=== PATIENT | female | born 1955 | race African-American/Black ===

== ENCOUNTER 2019-11-06 01:40 | Inpatient (IN) | payer BC, OTHER ==
[2019-11-06 02:51] LABS: Bacteria/HPF None Seen HPF (None Seen); Bilirubin 2+ (Negative); Blood, Urine Negative (Negative); Clarity Clear (Clear); Glucose, Urine (Dipstick) Greater than 1000 mg/dL (Negative); Ketone, Urine 10 mg/dL (Negative); Leukocyte Negative Leu/uL (Negative); Nitrite Negative (Negative); Protein, Urine (Dipstick) 100 mg/dL (Neg-Trace); RBC/HPF 0-3 HPF (0-3); Specific Gravity, Urine 1.026 (1.002-1.036); Squamous Epithelial 0-3 HPF (0-3); Urobilinogen Normal mg/dL (Less than 2); pH, Urine 6.5 (5.0-9.0)
[2019-11-06] MEDS ORDERED: Dextrose 5% in Water 1,000 ML IV PRN (02:51)
[2019-11-06] MEDS ORDERED: Dextrose 50% Abboject 50 ML SYRINGE SLOW IVP PRN (02:51)
[2019-11-06 04:01] LABS: #Lymphocytes 0.7 thou/uL (1.20-3.40); #Monocytes 0.2 thou/uL (0.11-0.59); #Neutrophils 3.6 thou/uL (1.40-6.50); %Basophils 0.6 % (0.0-1.0); %Eosinophils 0.1 % (0.0-10.0); %Lymphocytes 14.7 % (21.0-51.0); %Monocytes 5.3 % (0.0-10.0); %Neutrophils 79.3 % (42.0-75.0); Mean Corpuscular HGB CONC 33.6 g/dL (32.0-36.0); Mean Corpuscular Hemoglobin 25.5 pg (27.0-31.0); Mean Corpuscular Volume 75.7 fL (78.0-98.0); Mean Platelet Volume 9.8 fL (7.4-10.4); Platelet Count 300 thou/uL (130-400); RBC Distribution Width 13.4 % (11.5-14.5); Red Blood Cell (RBC) Count 4.73 mill/uL (4.20-5.40); White Blood Cell (WBC) Count 4.6 thou/uL (4.8-10.8)
[2019-11-06 04:12] LABS: ALT (SGPT) 15 U/L (8-55); AST (SGOT) 15 U/L (5-34); Albumin 3.9 g/dL (3.4-4.8); Alkaline Phosphatase 72 U/L (40-110); Anion Gap 15 mmol/L (10-20); BUN (Urea Nitrogen) 26 mg/dL (9.8-20.1); Bilirubin, Total 0.6 mg/dL (0.2-1.2); Calc. Creatinine Clearance 0 mL/min (70-130); Carbon Dioxide 26 mmol/L (23-31); Chloride 98 mmol/L (98-107); Estimated GFR-MDRD 50; Globulin 4.5 g/dL (2.4-3.5); Glucose 365 mg/dL (80-115); Potassium 4.1 mmol/L (3.5-5.1); Protein, Total 8.4 g/dL (6.0-8.3); Sodium 135 mmol/L (136-145)
[2019-11-06 04:15] VITALS: BMI 39.8
[2019-11-06] MEDS: HumaLOG 300 UNITS/3 ML VIAL SC PRN ×4 (05:25→20:26)
--- NOTE | 2019-11-06 06:02 | HP ---
REASON FOR ADMISSION: Worsening cough and fatigue. 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 She had a roommate who has been coughing and she helped the roommate go to the hospital, that roommate ruled in for COVID-19. The patient then developed fever and cough for the past week. She has been feeling fatigued and having low appetite. Today, she had worsening of her symptoms. She presented to an emergency room at [facility] and was positive for coronavirus. She was sent to us for further care. The patient is currently in our emergency room, appeared to be very comfortable and pleasant. She denies being short of breath. Her oxygen was found to be below 90% and she is currently on 4 L nasal cannula, oxygenating 94%. She denies sputum production. Denies nausea, vomiting, or diarrhea. PAST MEDICAL HISTORY: 1. Diabetes, type 2. 2. High cholesterol. 3. High blood pressure. 4. Hypothyroidism. 5. Anemia. SOCIAL HISTORY: She does not smoke. Does not drink alcohol. FAMILY HISTORY: Negative for heart disease. ALLERGIES: NO NOTE OF ANY DRUG ALLERGY. REVIEW OF SYSTEMS: All systems reviewed except the above-mentioned cough, found to be. PHYSICAL EXAMINATION: GENERAL: She is awake, alert, oriented, does not appear in distress. VITAL SIGNS: Her blood pressure is 129/62, heart rate of 84, temperature 98.3, saturating 92% on 4 L nasal cannula. HEENT: Head is nontraumatic, normocephalic. Pupils equal, reactive. Extraocular motors are intact. Nonicteric sclerae. Well injected conjunctivae. Oral mucosa normal. Nasal mucosa normal. NECK: Supple. No adenopathy. No murmur. Thyroid is palpable. Trachea is midline. No supraclavicular adenopathy. CARDIAC: S1-S2 regular. No murmur heard. LUNGS: Inspiratory crackles bilaterally. ABDOMEN: Bowel sounds are positive. Nontender abdomen. No visceromegaly. EXTREMITIES: No lower extremity edema. No cyanosis. NEUROLOGIC: Cranial nerves 2 through 12 within normal limits. Normal motor function. Normal sensory function. Normal reflexes. LABORATORY DATA: Blood work shows a WBC of 7.7, hemoglobin of 12.6, platelets of 335, neutrophil count 78.5%. Sodium 139, BUN 26, glucose 282, potassium 4.1, bicarb 29, BNP 6.4, ALT 16, AST 30. Troponin less than 0.05. CK-MB 1.2, myoglobin 352. IMAGING: EKG shows normal sinus rhythm, inferior infarct, age undetermined, cannot rule out anterior infarct per my read. ASSESSMENT AND PLAN: This is a 63-year-old female patient presenting with worsening of her fatigue, decreased appetite. She was found to be hypoxic. She was in contact with her roommate who tested positive for COVID-19. She herself also is positive for COVID-19 with abnormal chest x-ray. She is requiring oxygen. Pulmonary, the patient will be admitted to telemetry and she will be on isolation. She did receive Rocephin and azithromycin at the ER, but I think her findings are more compatible with her viral illness and for that reason, we will withhold any antibiotics for now. We will have her on IV dexamethasone. She did receive her initial dose at the emergency room and will continue supplementing with oxygen. Endocrinology, she will be maintained on her home medications and on insulin sliding scale. Continue levothyroxine. For DVT prophylaxis, she will be on Lovenox. Cardiac, the patient has high blood pressure. Would resume her current antihypertensive agents and she will be monitored on telemetry. In regard with finding on her EKG, most likely these are old findings as the patient does not complain of chest pain and her initial cardiac enzymes are negative. We would not pursue further workup for now. I did discuss with her code status and she wishes to be a full code. Job ID: [id number]
[2019-11-06] MEDS: Dexamethasone 4 mg/ml Vial SLOW IVP SCH (08:07)
[2019-11-06] MEDS ORDERED: Dexamethasone 6 MG in Sodium Chloride 0.9% 50 ML IVPB SCH (09:00)
[2019-11-06] MEDS ORDERED: Enoxaparin Sodium 40 MG/0.4 ML SYRINGE SC SCH (09:00)
--- NOTE | 2019-11-06 09:42 | RAD ---
Chest one view HISTORY: Pneumonia. COVID positive. FINDINGS: Cardiac silhouette is projection. Pulmonary vasculature accentuated by shallow inspiration. Mediastinum is midline. Patchy areas of ill-defined parenchymal opacity with groundglass appearance, are scattered throughout predominantly the periphery of each lung. No evidence of pneumothorax. Dystrophic calcification projecting over the right rotator cuff may reflect chronic calcific tendinos is. IMPRESSION : Multifocal and bilateral infiltrates, consistent with carotid pneumonia.
--- NOTE | 2019-11-06 14:02 | PDOC.HOSPP ---
- Subjective Encounter Date: 11/06/19 Encounter Time: 10:00 Subjective: THe patient states that she was diagnosed COVID + at outside ER few days ago. Reports being exposed to a patient who was COVID + even though she was wearing a mask. SHe reported chills, weakness, cough She states her cough has improved some and she is able to breathe better after getting dexamethasone. SHe is on 4L oxygen here, states at home she doesn't use any. She states that her oxygen level was 83% on room air - Objective Vital Signs & Weight: Vital Signs (12 hours) Temp Pulse Resp BP Pulse Ox 11/06/19 12:00 96.4 F L 77 18 134/81 95 11/06/19 08:00 96.4 F L 82 20 118/71 93 L 11/06/19 03:52 98.5 F 77 20 118/69 95 Weight Weight 232 lb 1.6 oz Result Diagrams: 11/06/19 03:38 11/06/19 03:38 Additional Labs: Accuchecks 11/06/19 12:16 POC Glucose 363 H Hospitalist ROS - Review of Systems Constitutional: denies: fever, chills - Medication Medications: Active Medications Generic Name Dose Route Start Last Admin Trade Name Freq PRN Reason Stop Dose Admin Dexamethasone 6 mg 11/06/19 09:00 11/06/19 08:07 Decadron SLOW IVP 6 mg DAILY FARAZ Administration Enoxaparin Sodium 40 mg 11/06/19 09:00 11/06/19 08:07 Lovenox SC 40 mg 0900 FARAZ Administration Insulin Human Lispro 0 units 11/06/19 02:51 11/06/19 12:07 Humalog SC 10 unit .MODERATE SLIDING SC PRN Administration Moderate Correctional Scale Sodium Chloride 10 ml 11/06/19 09:00 11/06/19 08:07 Flush - Normal Saline IVF 10 ml Q12HR FARAZ Administration - Exam General Appearance: NAD, awake alert Eye: PERRL, anicteric sclera ENT: normocephalic atraumatic, no oropharyngeal lesions Neck: no JVD Heart: RRR, no murmur, no gallops, no rubs Respiratory: CTAB, no wheezes, no rales, no ronchi Gastrointestinal: soft, non-tender, non-distended, normal bowel sounds Extremities: no cyanosis, no clubbing, no edema Skin: normal turgor, no lesions, no rashes Neurological: cranial nerve grossly intact, normal sensation to touch, no focal deficits, no new deficit Musculoskeletal: normal tone, normal strength, no muscle wasting Psychiatric: normal affect, normal behavior, A&O x 3 Hosp A/P - Plan This is a 63 year old female with past medical history of diabetes, hypothyroidism, hypertension who presented with acute hypoxic respiratory failure, admitted for pneumonia Acute hypoxic respiratory failure secondary to COVID pneumonia vs bacterial - chest X ray shows multifocal bilateral infiltrates - she is known COVID + per patient - continue dexamethasone - she is still on 4L of oxygen. Will trial antibiotics with meropenem and azithromycim - check blood cultures and procalcitonin - check troponin x 3 and BNP. Consider lasix if significantly elevated Possible RICKY - creatinine 1.3. Will continue to trend - UA does not look like UTI Type II diabetes - start lantus 10 units qhs - hold metformin and glipizide Hypertension - will hold antihypertensives for now DVT prophylaxis: switch to heparin SC Dispo: continue to wean off oxygen
[2019-11-06] MEDS ORDERED: Azithromycin 250 MG TAB PO SCH (14:45)
[2019-11-06] MEDS: Heparin 5,000 UNITS/ML VIAL SC SCH ×2 (16:09→20:16)
[2019-11-06] MEDS: Meropenem 2 GM in Sodium Chloride 0.9% 100 ML IVPB SCH ×2 (16:09→22:34)
[2019-11-06] MEDS: Atorvastatin Calcium 10 MG TAB PO SCH (16:09)
[2019-11-06] MEDS: Gabapentin 300 MG CAP PO SCH ×2 (16:09→20:16)
[2019-11-06] MEDS: Insulin Glargine 10 UNITS in Pre-Filled Syringe 1 EACH SC SCH (20:17)
[2019-11-07 02:50] LABS: Hemoglobin 11.9 g/dL (12.0-16.0); Mean Corpuscular HGB CONC 32.7 g/dL (32.0-36.0); Mean Corpuscular Hemoglobin 24.9 pg (27.0-31.0); Mean Corpuscular Volume 76.1 fL (78.0-98.0); Mean Platelet Volume 9.2 fL (7.4-10.4); Platelet Count 398 thou/uL (130-400); RBC Distribution Width 13.5 % (11.5-14.5); Red Blood Cell (RBC) Count 4.77 mill/uL (4.20-5.40); White Blood Cell (WBC) Count 6.8 thou/uL (4.8-10.8)
[2019-11-07 03:10] LABS: Anion Gap 13 mmol/L (10-20); BUN (Urea Nitrogen) 30 mg/dL (9.8-20.1); Calc. Creatinine Clearance 72 mL/min (70-130); Calcium 9.1 mg/dL (7.8-10.44); Carbon Dioxide 28 mmol/L (23-31); Chloride 100 mmol/L (98-107); Estimated GFR-MDRD 48; Glucose 288 mg/dL (80-115); Potassium 3.8 mmol/L (3.5-5.1); Sodium 137 mmol/L (136-145)
[2019-11-07] MEDS: Meropenem 2 GM in Sodium Chloride 0.9% 100 ML IVPB SCH (05:19)
[2019-11-07] MEDS: Levothyroxine Sodium 25 MCG TAB PO SCH (05:19)
[2019-11-07] MEDS: HumaLOG 300 UNITS/3 ML VIAL SC PRN ×4 (06:04→22:24)
[2019-11-07] MEDS: Albuterol 200 PUFF (6.7GM INHALER) INH SCH (06:39)
[2019-11-07] MEDS ORDERED: ALBUTEROL SULFATE IH SCH (09:00)
[2019-11-07] MEDS: Ferrous Sulfate 325 MG TAB PO SCH (09:29)
[2019-11-07] MEDS: Dexamethasone 4 mg/ml Vial SLOW IVP SCH (09:29)
[2019-11-07] MEDS: Gabapentin 300 MG CAP PO SCH ×3 (09:29→20:49)
[2019-11-07] MEDS: Azithromycin 250 MG TAB PO SCH (09:29)
[2019-11-07] MEDS: Heparin 5,000 UNITS/ML VIAL SC SCH ×3 (09:29→20:49)
[2019-11-07] MEDS: Atorvastatin Calcium 10 MG TAB PO SCH (15:41)
[2019-11-07] MEDS: Sodium Chloride 0.9% 1,000 ML IV SCH (15:43)
--- NOTE | 2019-11-07 18:22 | PDOC.HOSPP ---
- Subjective Encounter Date: 11/07/19 Subjective: THe patient is doing better .She was weaned off oxygen - Objective Vital Signs & Weight: Vital Signs (12 hours) Temp Pulse Pulse Pulse Resp BP BP 11/07/19 15:58 98.2 F 72 18 11/07/19 13:10 84 88 104/53 L 118/67 11/07/19 12:40 97.8 F 78 18 11/07/19 09:33 97.8 F 76 18 BP Pulse Ox Pulse Ox Pulse Ox Pulse Ox 11/07/19 15:58 106/63 96 11/07/19 13:10 93 L 93 L 95 11/07/19 12:40 114/62 96 11/07/19 09:33 121/66 94 L Weight Weight 232 lb 1.6 oz I&O: 11/06/19 11/07/19 11/08/19 06:59 06:59 06:59 Intake Total 480 Output Total 650 Balance -170 Result Diagrams: 11/07/19 02:37 11/07/19 02:37 Additional Labs: Accuchecks 11/07/19 11/07/19 11/06/19 12:41 05:27 20:29 POC Glucose 285 H 283 H 363 H 11/06/19 16:33 POC Glucose 398 H Hospitalist ROS - Medication Medications: Active Medications Generic Name Dose Route Start Last Admin Trade Name Jose Luis PRN Reason Stop Dose Admin Albuterol Sulfate 1 puff 11/07/19 07:00 11/07/19 06:39 Proventil Hfa INH 2 inh DAILY-RT FARAZ Administration Atorvastatin Calcium 10 mg 11/06/19 17:00 11/07/19 15:41 Lipitor PO 10 mg QPM-WM FARAZ Administration Azithromycin 250 mg 11/07/19 09:00 11/07/19 09:29 Zithromax PO 11/09/19 09:01 250 mg DAILY FARAZ Administration Dexamethasone 6 mg 11/06/19 09:00 11/07/19 09:29 Decadron SLOW IVP 6 mg DAILY FARAZ Administration Ferrous Sulfate 325 mg 11/07/19 09:00 11/07/19 09:29 Feosol PO 325 mg DAILY FARAZ Administration Gabapentin 300 mg 11/06/19 15:00 11/07/19 15:40 Neurontin PO 300 mg TID FARAZ Administration Heparin Sodium (Porcine) 5,000 units 11/06/19 15:00 11/07/19 15:39 Heparin SC 5,000 units TID FARAZ Administration Insulin Glargine 10 units/ 0.1 mls @ 0 mls/hr 11/06/19 21:00 11/06/19 20:17 Miscellaneous Medication SC 0.1 mls HS FARAZ Administration Sodium Chloride 1,000 mls @ 70 mls/hr 11/07/19 15:00 11/07/19 15:43 Normal Saline 0.9% IV 1,000 mls .[id number] FARAZ Administration Insulin Human Lispro 0 units 11/06/19 02:51 11/07/19 18:03 Humalog SC 10 unit .MODERATE SLIDING SC PRN Administration Moderate Correctional Scale Levothyroxine Sodium 25 mcg 11/07/19 06:00 11/07/19 05:19 Synthroid PO 25 mcg 0600 FARAZ Administration Sodium Chloride 10 ml 11/06/19 09:00 11/07/19 09:29 Flush - Normal Saline IVF 10 ml Q12HR FARAZ Administration - Exam General Appearance: NAD, awake alert Eye: PERRL, anicteric sclera ENT: normocephalic atraumatic, no oropharyngeal lesions Neck: no JVD Heart: RRR, no murmur, no gallops Respiratory: CTAB, no wheezes, no rales Gastrointestinal: soft, non-tender, non-distended, normal bowel sounds Extremities: no cyanosis, no clubbing, no edema Skin: normal turgor, no lesions, no rashes Neurological: cranial nerve grossly intact, normal sensation to touch Hosp A/P - Plan This is a 63 year old female with past medical history of diabetes, hypothyroidism, hypertension who presented with acute hypoxic respiratory failure, admitted for pneumonia Acute hypoxic respiratory failure secondary to COVID pneumonia vs bacterial - chest X ray shows multifocal bilateral infiltrates - she is known COVID + per patient - continue dexamethasone - she is still on 4L of oxygen. Will trial antibiotics with meropenem and azithromycim - check blood cultures and procalcitonin - troponin negative and BNP normal Possible RICKY - creatinine 1.3. Called PCP office, patient's creatinine was 1.0 on 10/19 and 0.6 few months ago - will trial IV fluid hydration Type II diabetes - start lantus 10 units qhs - hold metformin and glipizide Hypertension - will hold antihypertensives for now DVT prophylaxis: switch to heparin SC Dispo: continue to wean off oxygen
[2019-11-07] MEDS: Insulin Glargine 10 UNITS in Pre-Filled Syringe 1 EACH SC SCH (20:49)
[2019-11-07] MEDS: Montelukast Sodium 10 mg Tablet PO SCH (20:49)
[2019-11-08] MEDS: Sodium Chloride 0.9% 1,000 ML IV SCH (05:17)
[2019-11-08] MEDS: Levothyroxine Sodium 25 MCG TAB PO SCH (05:17)
[2019-11-08] MEDS: HumaLOG 300 UNITS/3 ML VIAL SC PRN ×3 (05:25→18:30)
[2019-11-08] MEDS: Dexamethasone 4 mg/ml Vial SLOW IVP SCH (08:12)
[2019-11-08] MEDS: Heparin 5,000 UNITS/ML VIAL SC SCH ×3 (08:14→20:01)
[2019-11-08] MEDS: Azithromycin 250 MG TAB PO SCH (08:14)
[2019-11-08] MEDS: Ferrous Sulfate 325 MG TAB PO SCH (08:14)
[2019-11-08] MEDS: Gabapentin 300 MG CAP PO SCH ×3 (08:14→20:00)
[2019-11-08] MEDS: Albuterol 200 PUFF (6.7GM INHALER) INH SCH (08:16)
[2019-11-08 11:37] LABS: Hemoglobin 11.8 g/dL (12.0-16.0); Mean Corpuscular HGB CONC 33.9 g/dL (32.0-36.0); Mean Corpuscular Hemoglobin 25.6 pg (27.0-31.0); Mean Corpuscular Volume 75.7 fL (78.0-98.0); Mean Platelet Volume 8.8 fL (7.4-10.4); Platelet Count 455 thou/uL (130-400); RBC Distribution Width 13.5 % (11.5-14.5); Red Blood Cell (RBC) Count 4.59 mill/uL (4.20-5.40); White Blood Cell (WBC) Count 7.9 thou/uL (4.8-10.8)
[2019-11-08 12:06] LABS: ALT (SGPT) 17 U/L (8-55); AST (SGOT) 15 U/L (5-34); Albumin 3.6 g/dL (3.4-4.8); Alkaline Phosphatase 65 U/L (40-110); Anion Gap 13 mmol/L (10-20); BUN (Urea Nitrogen) 26 mg/dL (9.8-20.1); Bilirubin, Total 0.5 mg/dL (0.2-1.2); Calc. Creatinine Clearance 91 mL/min (70-130); Calcium 8.7 mg/dL (7.8-10.44); Carbon Dioxide 26 mmol/L (23-31); Chloride 103 mmol/L (98-107); Estimated GFR-MDRD 63; Glucose 302 mg/dL (80-115); Potassium 3.9 mmol/L (3.5-5.1); Protein, Total 7.6 g/dL (6.0-8.3); Sodium 138 mmol/L (136-145)
--- NOTE | 2019-11-08 12:33 | EKG ---
Test Reason : Blood Pressure : / mmHG Vent. Rate : 063 BPM Atrial Rate : 063 BPM P-R Int : 206 ms QRS Dur : 098 ms QT Int : 426 ms P-R-T Axes : 054 006 036 degrees QTc Int : 435 ms Normal sinus rhythm with sinus arrhythmia Normal ECG No previous ECGs available Confirmed by DR. Nicole ROONEY MD ([id number]) on 11/08/2019 12:33:22 PM Referred By: KRISTEN SOLANO Confirmed By:DR. Nicole ROONEY MD
[2019-11-08] MEDS: Atorvastatin Calcium 10 MG TAB PO SCH (15:40)
--- NOTE | 2019-11-08 17:03 | PDOC.HOSPP ---
- Subjective Encounter Date: 11/08/19 Encounter Time: 12:30 Subjective: THe patient states she feels better. She was able to walk to the bathroom and take a shower without significant shortness of breath. She does still complain of left sided chest pain that's worst when she coughs. She was noted to have second degree AV block on tele overnight. She denies dizziness, lightheadedness, palpitations - Objective Vital Signs & Weight: Vital Signs (12 hours) Temp Pulse Pulse Pulse Resp BP BP 11/08/19 12:06 97.6 F 53 L 18 11/08/19 10:10 70 67 126/68 125/67 11/08/19 08:24 97.8 F 69 20 BP Pulse Ox Pulse Ox Pulse Ox 11/08/19 12:06 143/76 H 97 11/08/19 10:10 94 L 91 L 11/08/19 08:24 142/80 H 96 Weight Weight 232 lb 1.6 oz I&O: 11/07/19 11/08/19 11/09/19 06:59 06:59 06:59 Intake Total 480 2067 Output Total 650 650 Balance -170 1417 Result Diagrams: 11/08/19 11:28 11/08/19 11:28 Additional Labs: Accuchecks 11/08/19 11/08/19 11/07/19 12:12 05:25 20:58 POC Glucose 300 H 272 H 330 H 11/07/19 17:56 POC Glucose 380 H Hospitalist ROS - Review of Systems Constitutional: denies: fever, chills - Medication Medications: Active Medications Generic Name Dose Route Start Last Admin Trade Name Jose Luis PRN Reason Stop Dose Admin Albuterol Sulfate 1 puff 11/07/19 07:00 11/08/19 08:16 Proventil Hfa INH 1 puff DAILY-RT FARAZ Administration Atorvastatin Calcium 10 mg 11/06/19 17:00 11/08/19 15:40 Lipitor PO 10 mg QPM-WM FARAZ Administration Azithromycin 250 mg 11/07/19 09:00 11/08/19 08:14 Zithromax PO 11/09/19 09:01 250 mg DAILY FARAZ Administration Dexamethasone 6 mg 11/06/19 09:00 11/08/19 08:12 Decadron SLOW IVP 6 mg DAILY FARAZ Administration Ferrous Sulfate 325 mg 11/07/19 09:00 11/08/19 08:14 Feosol PO 325 mg DAILY FARAZ Administration Gabapentin 300 mg 11/06/19 15:00 11/08/19 15:40 Neurontin PO 300 mg TID FARAZ Administration Heparin Sodium (Porcine) 5,000 units 11/06/19 15:00 11/08/19 15:40 Heparin SC 5,000 units TID FARAZ Administration Insulin Glargine 10 units/ 0.1 mls @ 0 mls/hr 11/06/19 21:00 11/07/19 20:49 Miscellaneous Medication SC 0.1 mls HS FARAZ Administration Insulin Human Lispro 0 units 11/06/19 02:51 11/08/19 12:10 Humalog SC 6 unit .MODERATE SLIDING SC PRN Administration Moderate Correctional Scale Insulin Human Lispro 0 units 11/07/19 21:33 11/07/19 22:24 Humalog SC 4 unit .BEDTIME SLIDING SC PRN Administration Bedtime Correctional Scale Levothyroxine Sodium 25 mcg 11/07/19 06:00 11/08/19 05:17 Synthroid PO 25 mcg 0600 FARAZ Administration Montelukast Sodium 10 mg 11/07/19 21:00 11/07/19 20:49 Singulair PO 10 mg QPM FARAZ Administration Sodium Chloride 10 ml 11/06/19 09:00 11/08/19 08:12 Flush - Normal Saline IVF 10 ml Q12HR FARAZ Administration - Exam General Appearance: NAD, awake alert Eye: PERRL, anicteric sclera ENT: normocephalic atraumatic, no oropharyngeal lesions Neck: supple, symmetric, no JVD Heart: RRR, no murmur, no gallops, no rubs Respiratory: CTAB, no wheezes, no rales, no ronchi Gastrointestinal: soft, non-tender, non-distended, normal bowel sounds Extremities: no cyanosis, no clubbing, no edema Skin: normal turgor, no lesions, no rashes Neurological: cranial nerve grossly intact, normal sensation to touch, no focal deficits, no new deficit Hosp A/P - Plan This is a 63 year old female with past medical history of diabetes, hypothyroidism, hypertension who presented with acute hypoxic respiratory failure, admitted for pneumonia Acute hypoxic respiratory failure secondary to COVID pneumonia vs bacterial - resolved - chest X ray shows multifocal bilateral infiltrates - she is COVID + at outside hospital - continue dexamethasone - she has been weaned off oxygen. Continue azithromycin - blood cultures and procalcitonin normal - troponin negative and BNP normal Type II second degree AV block - cardiology consulted, may need an event monitor - monitor for another day RICKY - resolved - creatinine back to baseline - discontinue IV fluids Type II diabetes - increase lantus to 20 units, blood sugars 300's Hypertension - will hold antihypertensives for now DVT prophylaxis: switch to heparin SC Dispo: continue to wean off oxygen
[2019-11-08] MEDS: Montelukast Sodium 10 mg Tablet PO SCH (20:01)
[2019-11-08] MEDS ORDERED: Insulin Glargine 20 UNITS in Pre-Filled Syringe 1 EACH SC SCH (21:00)
[2019-11-09 04:46] LABS: Mean Corpuscular HGB CONC 33.8 g/dL (32.0-36.0); Mean Corpuscular Hemoglobin 25.9 pg (27.0-31.0); Mean Corpuscular Volume 76.5 fL (78.0-98.0); Mean Platelet Volume 8.5 fL (7.4-10.4); Platelet Count 431 thou/uL (130-400); RBC Distribution Width 13.7 % (11.5-14.5); Red Blood Cell (RBC) Count 4.63 mill/uL (4.20-5.40); White Blood Cell (WBC) Count 8.9 thou/uL (4.8-10.8)
[2019-11-09 05:12] LABS: Anion Gap 13 mmol/L (10-20); BUN (Urea Nitrogen) 22 mg/dL (9.8-20.1); Calc. Creatinine Clearance 108 mL/min (70-130); Calcium 8.8 mg/dL (7.8-10.44); Carbon Dioxide 23 mmol/L (23-31); Chloride 106 mmol/L (98-107); Estimated GFR-MDRD 77; Glucose 294 mg/dL (80-115); Potassium 4.1 mmol/L (3.5-5.1); Sodium 138 mmol/L (136-145)
[2019-11-09] MEDS: Levothyroxine Sodium 25 MCG TAB PO SCH (05:20)
[2019-11-09] MEDS: HumaLOG 300 UNITS/3 ML VIAL SC PRN ×3 (05:24→16:16)
[2019-11-09] MEDS: Azithromycin 250 MG TAB PO SCH (08:18)
[2019-11-09] MEDS: Ferrous Sulfate 325 MG TAB PO SCH (08:19)
[2019-11-09] MEDS: Albuterol 200 PUFF (6.7GM INHALER) INH SCH (08:19)
[2019-11-09] MEDS: Gabapentin 300 MG CAP PO SCH ×3 (08:19→20:44)
[2019-11-09] MEDS: Heparin 5,000 UNITS/ML VIAL SC SCH ×3 (08:19→20:44)
[2019-11-09] MEDS: Dexamethasone 4 mg/ml Vial SLOW IVP SCH (08:19)
--- NOTE | 2019-11-09 12:03 | PDOC.EP ---
- Subjective Date: 11/09/19 Time: 12:00 Interval History: continues to recover from COVID-19. She voices no cardiac concerns or complaints today. She denies any heart racing, palpitations, chest pain, pressure, syncope, stroke or stroke-like symptoms. - Review of Systems Constitutional: reports: malaise, weakness. denies: chills, fever, sweats Respiratory: reports: cough. denies: hemoptysis, shortness of breath, wheezing Cardiology: denies: chest pain, edema, heart racing, light headedness, palpitations, passing out - Objective Allergies/Adverse Reactions: Allergies Allergy/AdvReac Type Severity Reaction Status Date / Time Penicillins Allergy Verified 11/06/19 03:15 Current Medications Albuterol Sulfate (Proventil Hfa) 1 puff INH DAILY-RT [facility] Last Admin: 11/09/19 08:19 Dose: 1 puff Atorvastatin Calcium (Lipitor) 10 mg PO QPM-WM [facility] Last Admin: 11/08/19 15:40 Dose: 10 mg Dextrose/Water (Dextrose 50%) 25 gm SLOW IVP PRN PRN PRN Reason: Hypoglycemia Ferrous Sulfate (Feosol) 325 mg PO DAILY [facility] Last Admin: 11/09/19 08:19 Dose: 325 mg Gabapentin (Neurontin) 300 mg PO TID [facility] Last Admin: 11/09/19 08:19 Dose: 300 mg Glucagon (Glucagon) 1 mg IM PRN PRN PRN Reason: Hypoglycemia Heparin Sodium (Porcine) (Heparin) 5,000 units SC TID [facility] Last Admin: 11/09/19 08:19 Dose: 5,000 units Dextrose/Water (D5w) 1,000 mls @ 0 mls/hr IV .Q0M PRN PRN Reason: Hypoglycemia Insulin Glargine 20 units/ (Miscellaneous Medication) 0.2 mls @ 0 mls/hr SC [facility] Last Admin: 11/08/19 20:05 Dose: 0.2 mls Insulin Human Lispro (Humalog) 0 units SC .MODERATE SLIDING SC PRN PRN Reason: Moderate Correctional Scale Last Admin: 11/09/19 11:42 Dose: 8 unit Insulin Human Lispro (Humalog) 0 units SC .BEDTIME SLIDING SC PRN PRN Reason: Bedtime Correctional Scale Last Admin: 11/07/19 22:24 Dose: 4 unit Levothyroxine Sodium (Synthroid) 25 mcg PO 0600 [facility] Last Admin: 11/09/19 05:20 Dose: 25 mcg Montelukast Sodium (Singulair) 10 mg PO QPM [facility] Last Admin: 11/08/19 20:01 Dose: 10 mg Sodium Chloride (Flush - Normal Saline) 10 ml IVF Q12HR [facility] Last Admin: 11/09/19 08:20 Dose: 10 ml Sodium Chloride (Flush - Normal Saline) 10 ml IVF PRN PRN PRN Reason: Saline Flush Vital Signs & Weight: Vital Signs Temp Pulse Resp BP BP Pulse Ox 11/09/19 08:00 97.9 F 76 18 135/71 93 L 11/09/19 05:31 98.1 F 58 L 19 144/67 H 96 Weight 232 lb 11.2 oz I/O: I/O 11/08/19 11/09/19 11/10/19 06:59 06:59 06:59 Intake Total 2067 360 Output Total 650 400 Balance 1417 -40 - Physical Exam General: alert & oriented x3, appears well, no apparent distress, speech clear, affect appropriate HEENT: mucus membranes moist, normocephaly Neck: supple neck, midline trachea, no JVD/HJR, no masses, no bruit, no lymphadenopathy, no thromegaly Cardiology: no murmur Lungs: no wheeze, rales, rhonchi, decreased breath sounds Neurology: cranial nerve 2-12 intact, grossly intact, no lateralizing findings - Labs Result Diagrams: 11/09/19 04:34 11/09/19 04:34 - EKG Interpretation EKG Method: Telemetry EKG shows: Sinus rhythm - Assessment/Plan Assessment/Plan: 1. Second-degree Mobitz type 1 -again seen at approximately 1:30 a.m. while asleep 2. transient fluctuating between tachy/Nehemiah seen while asleep - typically seen with sleep apnea 3. obesity 4. COVID-19 positive similar episode was seen over the night at nearly the same time. No indication for pacing. Recommend outpatient sleep study and CPAP as indicated. weight loss would also be beneficial. EP signing off
[2019-11-09] MEDS: Atorvastatin Calcium 10 MG TAB PO SCH (16:15)
--- NOTE | 2019-11-09 16:52 | PDOC.HOSPP ---
- Subjective Encounter Date: 11/09/19 Encounter Time: 13:00 Subjective: The patient is doing well. SHe ambulated to the bathroom and maintaind sat on room air. She states she doesn't have a ride to go home until Tuesday. [place] two [place]. She has mild dry cough - Objective Vital Signs & Weight: Vital Signs (12 hours) Temp Pulse Resp BP BP Pulse Ox 11/09/19 16:00 97.7 F 61 18 141/70 H 98 11/09/19 12:00 98.0 F 74 20 136/72 95 11/09/19 08:00 97.9 F 76 18 135/71 93 L 11/09/19 05:31 98.1 F 58 L 19 144/67 H 96 Weight Weight 232 lb 11.2 oz I&O: 11/08/19 11/09/19 11/10/19 06:59 06:59 06:59 Intake Total 2067 360 Output Total 650 400 Balance 1417 -40 Result Diagrams: 11/09/19 04:34 11/09/19 04:34 Additional Labs: Accuchecks 11/09/19 11/09/19 11/08/19 16:13 11:39 20:17 POC Glucose 339 H 337 H 405 H 11/08/19 18:31 POC Glucose 345 H Hospitalist ROS - Review of Systems Constitutional: denies: fever, chills - Medication Medications: Active Medications Generic Name Dose Route Start Last Admin Trade Name Freq PRN Reason Stop Dose Admin Albuterol Sulfate 1 puff 11/07/19 07:00 11/09/19 08:19 Proventil Hfa INH 1 puff DAILY-RT FARAZ Administration Atorvastatin Calcium 10 mg 11/06/19 17:00 11/09/19 16:15 Lipitor PO 10 mg QPM-WM FARAZ Administration Ferrous Sulfate 325 mg 11/07/19 09:00 11/09/19 08:19 Feosol PO 325 mg DAILY FARAZ Administration Gabapentin 300 mg 11/06/19 15:00 11/09/19 14:36 Neurontin PO 300 mg TID FARAZ Administration Heparin Sodium (Porcine) 5,000 units 11/06/19 15:00 11/09/19 14:36 Heparin SC 5,000 units TID FARAZ Administration Insulin Glargine 20 units/ 0.2 mls @ 0 mls/hr 11/08/19 21:00 11/08/19 20:05 Miscellaneous Medication SC 0.2 mls HS FARAZ Administration Insulin Human Lispro 0 units 11/06/19 02:51 11/09/19 16:16 Humalog SC 8 unit .MODERATE SLIDING SC PRN Administration Moderate Correctional Scale Insulin Human Lispro 0 units 11/07/19 21:33 11/07/19 22:24 Humalog SC 4 unit .BEDTIME SLIDING SC PRN Administration Bedtime Correctional Scale Levothyroxine Sodium 25 mcg 11/07/19 06:00 11/09/19 05:20 Synthroid PO 25 mcg 0600 FARAZ Administration Montelukast Sodium 10 mg 11/07/19 21:00 11/08/19 20:01 Singulair PO 10 mg QPM FARAZ Administration Sodium Chloride 10 ml 11/06/19 09:00 11/09/19 08:20 Flush - Normal Saline IVF 10 ml Q12HR FARAZ Administration - Exam General Appearance: NAD, awake alert Eye: PERRL, anicteric sclera ENT: normocephalic atraumatic, no oropharyngeal lesions Neck: supple, no JVD Heart: RRR, no murmur, no gallops, no rubs Respiratory: CTAB, no wheezes, no rales, no ronchi Gastrointestinal: soft, non-tender, non-distended, normal bowel sounds Extremities: no cyanosis, no clubbing, no edema Skin: normal turgor, no lesions, no rashes Neurological: cranial nerve grossly intact, normal sensation to touch, no focal deficits, no new deficit Hosp A/P - Plan This is a 63 year old female with past medical history of diabetes, hypothyroidism, hypertension who presented with acute hypoxic respiratory failure, admitted for pneumonia Acute hypoxic respiratory failure secondary to COVID pneumonia vs bacterial - resolved - chest X ray shows multifocal bilateral infiltrates . She finished course of azithromycin - she is COVID + at outside hospital - was on IV dexamethasone, discontinued today, switch to oral tomorrow - blood cultures and procalcitonin normal - troponin negative and BNP normal Type II second degree AV block - cardiology consulted and EP. Dr. Verde believes it is more secondary to KARLIE, no event monitor needed KARLIE - patient states she is ordering CPAP and will have it delivered to her house on Tuesday Type II diabetes - increase lantus to 30 units, blood sugars in the 300's - IV dexamethaosne discontinued RICKY - resolved Hypertension - will hold antihypertensives for now, BP well controlled without it DVT prophylaxis: heparin SC Dispo: patient needs a ride, may be here 1-2 days
--- NOTE | 2019-11-09 16:57 | CON ---
DATE OF CONSULTATION: 11/08/2019 Electrophysiology consultation performed by Dr. Jorge Verde. REASON FOR CONSULTATION: Second-degree AV block. HISTORY OF PRESENT ILLNESS: Ms. Frost is a 63-year-old woman, who has been coughing at home. 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 She had a roommate who was positive for COVID-19 and she has also tested positive herself. She has been monitored via telemetry and she is found to have second-degree AV block, prompting Electrophysiology consultation. Ms. Frost feels fairly well. She continues to have cough and shortness of breath with some fatigue and decreased appetite. At the time of her AV block on telemetry, the patient was sleeping. She denies any heart racing, palpitations, chest pain, pressure, syncope, stroke, or stroke-like symptoms. She is having no dizziness at rest or with activity. REVIEW OF SYSTEMS: A 12-point review of systems is otherwise unremarkable. PAST MEDICAL HISTORY: Type 2 diabetes, high cholesterol, hypertension, hypothyroidism, and anemia. SOCIAL HISTORY: Negative for tobacco, alcohol, or illicit drug use. FAMILY HISTORY: Negative for sudden cardiac or early-onset CAD. ALLERGIES: PENICILLINS. HOME MEDICATIONS: 1. Iron daily. 2. Montelukast 10 mg daily. 3. Losartan 50 mg q.p.m. 4. Levothyroxine 25 mcg q.p.m. 5. ProAir daily. 6. Glucophage 1000 mg b.i.d. 7. Glipizide 10 mg t.i.d. 8. Lovastatin 40 mg q.p.m. 9. Hydrochlorothiazide 25 mg q.a.m. 10. Gabapentin 300 mg p.o. t.i.d. 11. Amlodipine 5 mg p.o. daily. OBJECTIVE: VITAL SIGNS: Temperature 97.6 degrees Fahrenheit, pulse 89, blood pressure is 143/76, oxygen 97% on room air, and respirations 18. Height is 5 feet and 4 inches, 232 pounds, BMI is 39. GENERAL: The patient is alert and oriented. Speech is clear. Affect is appropriate. She is in no apparent distress at the time of the exam. Resting comfortably in bed. HEENT: Head is normocephalic and atraumatic. Sclerae are anicteric. EOMs are intact. Oral mucosa is moist and pink with adequate dentition. NECK: Supple without jugular venous distention. LUNGS: Clear to auscultation bilaterally, diminished in the bases. No adventitious lung sounds are heard. HEART: Rate is regularly regular with crisp S1 and S2. PMI is nondisplaced. ABDOMEN: Obese, soft, nontender without palpable masses. Hepatojugular reflux is negative. EXTREMITIES: Warm and dry to touch. Well perfused without clubbing, cyanosis, or edema. NEUROLOGIC: Grossly intact. Gait was not assessed. DATABASE: Laboratory: Hematology was unremarkable. Chemistry; potassium 3.9, creatinine 1.07, magnesium 2.1. Liver enzymes within normal ranges. Telemetry and EKG show largely sinus rhythm. During the hours of sleep at approximately 1:30 a.m., the patient had alternating tach lilliam heart rate pattern, occasional 2:1 AV block with IN interval stretching suggestive of a Wenckebach pattern. IMPRESSION: 1. 2:1 AV block, second-degree Mobitz type 1, while asleep. 2. Mild bradycardia. 3. Obesity with an elevated BMI of 39. 4. Atypical chest pain, pleuritic. 5. Positive COVID-19. PLAN AND RECOMMENDATIONS: At this time, there is no definite indication for permanent pacemaker support. She does have some mild daytime bradycardia, but she is asymptomatic. During the hours of sleep, she was occasionally seen to have alternating tachy-lilliam, suggestive of sleep apnea. Her episodes of AV block are suggestive of second-degree Mobitz type 1 that is frequently seen with sleep apnea. For right now, I would refrain from pacing and advocate for an outpatient sleep study and treatment of likely sleep apnea. I would also recommend weight loss, and if symptomatic bradycardia or second-degree AV block is seen, then could have consideration for pacing. Thank you for allowing me to participate in the care of this patient. Job ID: [id number]
[2019-11-09] MEDS: Montelukast Sodium 10 mg Tablet PO SCH (20:44)
[2019-11-09] MEDS: Insulin Glargine 30 UNITS in Pre-Filled Syringe SC SCH (20:45)
[2019-11-10] MEDS: Levothyroxine Sodium 25 MCG TAB PO SCH (05:31)
[2019-11-10 05:48] LABS: Hemoglobin 11.6 g/dL (12.0-16.0); Mean Corpuscular HGB CONC 32.3 g/dL (32.0-36.0); Mean Corpuscular Hemoglobin 24.5 pg (27.0-31.0); Mean Corpuscular Volume 75.8 fL (78.0-98.0); Mean Platelet Volume 8.7 fL (7.4-10.4); Platelet Count 493 thou/uL (130-400); RBC Distribution Width 13.8 % (11.5-14.5); Red Blood Cell (RBC) Count 4.74 mill/uL (4.20-5.40); White Blood Cell (WBC) Count 11.7 thou/uL (4.8-10.8)
[2019-11-10 06:06] LABS: Anion Gap 13 mmol/L (10-20); BUN (Urea Nitrogen) 21 mg/dL (9.8-20.1); Calc. Creatinine Clearance 107 mL/min (70-130); Carbon Dioxide 24 mmol/L (23-31); Chloride 106 mmol/L (98-107); Estimated GFR-MDRD 76; Potassium 3.8 mmol/L (3.5-5.1); Sodium 139 mmol/L (136-145)
[2019-11-10 06:07] LABS: Glucose 296 mg/dL (80-115)
[2019-11-10] MEDS: HumaLOG 300 UNITS/3 ML VIAL SC PRN ×4 (07:13→20:04)
[2019-11-10] MEDS: Heparin 5,000 UNITS/ML VIAL SC SCH ×3 (07:59→19:54)
[2019-11-10] MEDS: Albuterol 200 PUFF (6.7GM INHALER) INH SCH (07:59)
[2019-11-10] MEDS: Ferrous Sulfate 325 MG TAB PO SCH (07:59)
[2019-11-10] MEDS: Gabapentin 300 MG CAP PO SCH ×3 (07:59→19:54)
--- NOTE | 2019-11-10 14:14 | PDOC.HOSPP ---
- Subjective Encounter Date: 11/10/19 Subjective: No new complaints. - Objective Vital Signs & Weight: Vital Signs (12 hours) Temp Pulse Resp BP BP Pulse Ox 11/10/19 11:48 98.3 F 59 L 18 144/79 H 93 L 11/10/19 08:18 96 11/10/19 08:05 98 F 54 L 16 133/73 96 11/10/19 05:36 97.9 F 56 L 20 157/68 H 99 Weight Weight 232 lb 11.2 oz I&O: 11/09/19 11/10/19 11/11/19 06:59 06:59 06:59 Intake Total 360 1620 Output Total 400 1175 Balance -40 445 Result Diagrams: 11/10/19 05:24 11/10/19 05:24 Additional Labs: Accuchecks 11/10/19 11/09/19 11/09/19 10:31 20:56 16:13 POC Glucose 379 H 375 H 339 H Hospitalist ROS - Medication Medications: Active Medications Generic Name Dose Route Start Last Admin Trade Name Freq PRN Reason Stop Dose Admin Albuterol Sulfate 1 puff 11/07/19 07:00 11/10/19 07:59 Proventil Hfa INH 1 puff DAILY-RT FARAZ Administration Atorvastatin Calcium 10 mg 11/06/19 17:00 11/09/19 16:15 Lipitor PO 10 mg QPM-WM FARAZ Administration Ferrous Sulfate 325 mg 11/07/19 09:00 11/10/19 07:59 Feosol PO 325 mg DAILY FARAZ Administration Gabapentin 300 mg 11/06/19 15:00 11/10/19 07:59 Neurontin PO 300 mg TID FARAZ Administration Heparin Sodium (Porcine) 5,000 units 11/06/19 15:00 11/10/19 07:59 Heparin SC 5,000 units TID FARAZ Administration Insulin Glargine 30 units/ 0.3 mls @ 0 mls/hr 11/09/19 21:00 11/09/19 20:45 Miscellaneous Medication SC 0.3 mls HS FARAZ Administration Insulin Human Lispro 0 units 11/06/19 02:51 11/10/19 10:36 Humalog SC 10 unit .MODERATE SLIDING SC PRN Administration Moderate Correctional Scale Insulin Human Lispro 0 units 11/07/19 21:33 11/07/19 22:24 Humalog SC 4 unit .BEDTIME SLIDING SC PRN Administration Bedtime Correctional Scale Levothyroxine Sodium 25 mcg 11/07/19 06:00 11/10/19 05:31 Synthroid PO 25 mcg 0600 FARAZ Administration Montelukast Sodium 10 mg 11/07/19 21:00 11/09/19 20:44 Singulair PO 10 mg QPM FARAZ Administration Sodium Chloride 10 ml 11/06/19 09:00 11/10/19 07:59 Flush - Normal Saline IVF 10 ml Q12HR FARAZ Administration - Exam General Appearance: awake alert ENT: normocephalic atraumatic Neck: supple, no JVD Respiratory: normal chest expansion, no tachypnea Neurological: cranial nerve grossly intact, no focal deficits Hosp A/P - Plan Acute hypoxic respiratory failure secondary to COVID pneumonia vs bacterial - resolved - chest X ray shows multifocal bilateral infiltrates . She finished course of azithromycin - she is COVID + at outside hospital -Continue oral dexamethasone. She is stable for discharge today. However, the patient has to be released tomorrow because she does not have access to her residence today. Type II second degree AV block - cardiology consulted and EP. Dr. Verde believes it is more secondary to KARLIE, no event monitor needed KARLIE - patient states she is ordering CPAP and will have it delivered to her house on Tuesday Type II diabetes - increase lantus to 30 units, blood sugars in the 300's - IV dexamethaosne discontinued RICKY - resolved Hypertension - will hold antihypertensives for now, BP well controlled without it DVT prophylaxis: heparin SC Dispo: patient needs a ride, may be here 1-2 days
[2019-11-10] MEDS: Atorvastatin Calcium 10 MG TAB PO SCH (18:20)
[2019-11-10] MEDS: Montelukast Sodium 10 mg Tablet PO SCH (19:54)
[2019-11-10] MEDS: Insulin Glargine 30 UNITS in Pre-Filled Syringe SC SCH (19:57)
[2019-11-11 03:47] VITALS: TEMP 98.2
[2019-11-11] MEDS: Levothyroxine Sodium 25 MCG TAB PO SCH (04:53)
[2019-11-11] MEDS: Albuterol 200 PUFF (6.7GM INHALER) INH SCH (04:53)
[2019-11-11] MEDS: HumaLOG 300 UNITS/3 ML VIAL SC PRN ×2 (05:06→10:57)
[2019-11-11] MEDS: Heparin 5,000 UNITS/ML VIAL SC SCH (07:38)
[2019-11-11] MEDS: Gabapentin 300 MG CAP PO SCH (07:38)
[2019-11-11] MEDS: Ferrous Sulfate 325 MG TAB PO SCH (07:38)
[2019-11-11 09:37] VITALS: BP 147/77
--- NOTE | 2019-11-12 07:22 | DIS ---
DATE OF ADMISSION: 11/06/2019 DATE OF DISCHARGE: 11/11/2019 DISCHARGE DIAGNOSES: 1. Acute hypoxic respiratory failure. 2. COVID-19 pneumonia. 3. Type 2 second-degree heart block. 4. Obstructive sleep apnea. 5. Uncontrolled diabetes mellitus type 2. 6. Acute kidney injury. 7. Hypertension. DISCHARGE MEDICATIONS: 1. Aspirin 325 mg orally daily for 30 days. 2. Insulin lispro mix 75-25 kwikpen 25 units subcutaneous b.i.d. 3. Ferrous sulfate 325 mg orally daily. 4. Gabapentin 300 mg orally t.i.d. 5. Levothyroxine 25 mcg orally nightly. 6. Lovastatin 40 mg orally nightly. 7. Montelukast 10 mg orally daily. 8. Albuterol sulfate 90 mcg inhaled daily as needed for shortness of breath or wheezing. 9. Amlodipine 5 mg orally daily. 10. Glipizide 10 mg orally t.i.d. 11. Hydrochlorothiazide 25 mg orally daily. 12. Losartan 50 mg orally nightly. 13. Metformin 1000 mg orally twice daily. HISTORY OF PRESENT ILLNESS AND HOSPITAL COURSE: The patient is a 63-year-old female with past medical history of diabetes mellitus type 2, hyperlipidemia, hypertension, hypothyroidism, asthma, who presented to the hospital with complaints of fever and cough. She has a roommate who tested positive for COVID-19. The patient was found to be hypoxic and admitted to the hospital for further management. She was managed with supplemental oxygen and dexamethasone. The patient's sugar levels were uncontrolled initially, which has worsened with initiation of corticosteroids. The patient was placed on insulin to control her sugar levels. Her creatinine level was also elevated on admission and improved after IV hydration. The patient's hypoxia gradually got better during hospital stay and resolved completely prior to discharge. During her stay in the telemetry unit, she was found to have a second-degree AV block and Electrophysiology Service was consulted. This has ruled to be 2:1 AV block second-degree Mobitz type 1 while she is sleeping associated with mild bradycardia. Electrophysiology Service recommended no permanent pacemaker support at this time. Her second-degree AV block is frequently seen with sleep apnea, which the patient suffers from. Outpatient followup with pulmonology to address sleep apnea was recommended. Job ID: [id number]
== END 2019-11-11 12:15 | disposition home or self-care (01) | DRG 177 ==
LOC: ERS 01:40 → 2SW 02:18 → OBSVTOIN 02:18
PROVIDERS: ADMIT Internal Medicine; ATTEND Internal Medicine
PROC: 8E0ZXY6 Isolation (ICD-10-PCS; principal; 2019-11-06)
DX: U07.1 COVID-19 (principal); J96.01 Acute respiratory failure with hypoxia; J12.89 Other viral pneumonia; J15.9 Unspecified bacterial pneumonia; N17.9 Acute kidney failure, unspecified; E11.9 Type 2 diabetes mellitus without complications; E78.5 Hyperlipidemia, unspecified; E78.00 Pure hypercholesterolemia, unspecified; I10 Essential (primary) hypertension; E03.9 Hypothyroidism, unspecified; D64.9 Anemia, unspecified; E66.9 Obesity, unspecified; G47.33 Obstructive sleep apnea (adult) (pediatric); R07.81 Pleurodynia; I44.1 Atrioventricular block, second degree; R00.1 Bradycardia, unspecified; Z88.0 Allergy status to penicillin; Z79.899 Other long term (current) drug therapy; Z79.890 Hormone replacement therapy; Z79.84 Long term (current) use of oral hypoglycemic drugs; Z68.39 Body mass index [BMI] 39.0-39.9, adult
CPT/HCPCS: 36415; 36416; 71045; 80048; 80053; 81003; 81015; 83735; 83880; 84145; 84484; 85025; 85027; 87040; 93005; 93010; 94150; 99285; J1100; J1644; J1650; J1815; J2185; J3490